=== PATIENT | female | born 1970 | race Caucasian/White ===

== ENCOUNTER 2016-09-11 00:09 | Emergency (ER) | payer SELFPAY ==
[~2016-09-11] VITALS: Ht 162.6 cm; Wt 6.7 kg
[2016-09-11] MEDS ORDERED: LISI-661 PO (00:27)
[2016-09-11 03:38] VITALS: BP 136/85
== END 2016-09-11 04:35 | disposition home or self-care (01) ==
LOC: EMS 00:11
DX: S63.501A Unspecified sprain of right wrist, initial encounter (principal); I10 Essential (primary) hypertension; W50.0XXA Accidental hit or strike by another person, initial encounter; Y93.89 Activity, other specified; Y92.89 Other specified places as the place of occurrence of the external cause; Y99.8 Other external cause status
CPT/HCPCS: 29280; 81025; 99284

== ENCOUNTER 2016-12-04 20:20 | Emergency (ER) | payer SELFPAY ==
[~2016-12-04] VITALS: Ht 162.6 cm; Wt 68.2 kg
[~2016-12-04 20:20] MED LIST: LISI-661 PO
[2016-12-04] MEDS ORDERED: IBUP-1547 PO (21:01)
[2016-12-04 22:57] VITALS: BP 136/82
== END 2016-12-04 22:59 | disposition home or self-care (01) ==
LOC: EMS 20:20
DX: S63.601A Unspecified sprain of right thumb, initial encounter (principal); I10 Essential (primary) hypertension; F17.210 Nicotine dependence, cigarettes, uncomplicated; W20.8XXA Other cause of strike by thrown, projected or falling object, initial encounter; Y93.89 Activity, other specified; Y92.89 Other specified places as the place of occurrence of the external cause; Y99.8 Other external cause status
CPT/HCPCS: 81025; 99284; 99406

== ENCOUNTER 2017-01-29 22:04 | Emergency (ER) | payer MEDICAID ==
[~2017-01-29] VITALS: Ht 162.6 cm; Wt 67.3 kg
[~2017-01-29 22:04] MED LIST changes: +IBUP-1547 PO
[2017-01-30 01:28] VITALS: BP 138/74
== END 2017-01-30 01:29 | disposition home or self-care (01) ==
LOC: EMS 22:05
DX: S63.601A Unspecified sprain of right thumb, initial encounter (principal); F17.210 Nicotine dependence, cigarettes, uncomplicated; I10 Essential (primary) hypertension; X58.XXXA Exposure to other specified factors, initial encounter; Y93.89 Activity, other specified; Y92.89 Other specified places as the place of occurrence of the external cause; Y99.9 Unspecified external cause status
CPT/HCPCS: 99283; 99406